=== PATIENT | male | born 1950 | race Caucasian/White ===

== ENCOUNTER → 2018-08-14 | Outpatient (CLI) | payer OTHER, MEDICARE | LOC: FIMAGING 09:57 | PROVIDERS: ATTEND Physician Assistant Surgical | DX: T84.226A Displacement of internal fixation device of vertebrae, initial encounter (principal); Z98.1 Arthrodesis status ==

== ENCOUNTER 2018-08-20 07:15 | Inpatient (IN) | payer OTHER, MEDICARE ==
[~2018-08-20 07:15] MED LIST: TRANEXAMIC ACID 1,000 MG in NS 100 ML IV ONE
[2018-08-20] MEDS ORDERED: fentaNYL 50 MCG in SYRINGE INTRATHECAL 1 SYR IT ONE (07:28)
[2018-08-20] MEDS ORDERED: ACETAMINOPHEN 500 MG TAB PO ONE (07:28)
[2018-08-20] MEDS ORDERED: morphINE PF 0.2 MG in SYRINGE INTRATHECAL 1 SYR IT ONE (07:28)
[2018-08-20] MEDS ORDERED: ceFAZolin 2 GM/DEXTROSE 100 ML IV ONE (07:28)
[2018-08-20] MEDS ORDERED: GABAPENTIN 300 MG CAP PO ONE (07:28)
[2018-08-20] MEDS ORDERED: LR 1,000 ML IV ONE (07:29)
[2018-08-20] MEDS ORDERED: LIDOCAINE 1% 2 ML INJ ID PRN (07:29)
[2018-08-20] MEDS ORDERED: BACITRACIN 50,000 UNITS/10 ML SYR IRR ONE ×2 (08:29→14:34)
[2018-08-20] MEDS ORDERED: BUPIVACAINE 0.25% 30 ML SDV ONE ×2 (08:29→16:15)
[2018-08-20] MEDS ORDERED: THROMBIN (BOVINE) 5,000 UNIT VIAL TP ONE (08:29)
[2018-08-20] MEDS ORDERED: CHLORHEXIDINE GLUC HIBICLENS 118 ML BTL TP ONE (08:29)
[2018-08-20] MEDS ORDERED: EPINEPHrine 1 MG/ML INJ ONE ×2 (08:29→16:15)
[2018-08-20 08:31] LABS: PLATELET COUNT 236 10^3/uL (150-400)
[2018-08-20] MEDS ORDERED: CITRATE DEXTROSE SOLN 500 ML BAG ONE ×3 (08:33→13:50)
[2018-08-20] MEDS ORDERED: fentaNYL 100 MCG/2 ML INJ IV ONE ×2 (08:45→09:45)
--- NOTE | 2018-08-20 09:51 | PDHPUP ---
History & Physical Update H&P update statement: This history and physical update is based on an assessment of the patient which was completed after admission or registration (within 24 hours), but prior to the surgery/procedure. H&P update: no change in patient's condition since H&P completed
[2018-08-20] MEDS ORDERED: THROMBIN (BOVINE) 20,000 UNIT VIAL TP ONE (10:03)
--- NOTE | 2018-08-20 10:03 | PDANEPAE ---
ANE Past Medical History - Cardiovascular History Hx Hypertension: Yes Hx Arrhythmias: Yes Hx Chest Pain: No Hx Coronary Artery / Peripheral Vascular Disease: No Hx CHF / Valvular Disease: No Hx Palpitations: No Cardiovascular History Comment: Ablation for afib, 05/2018, with cardioversion one month prior. 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 DM2 - Renal History Hx Renal Disorders: No - Liver History Hx Hepatic Disorders: No - Neurological & Psychiatric Hx Hx Neurological and Psychiatric Disorders: No - Cancer History Hx Cancer: Yes Cancer History Comment: THYROID 2011. SKIN CA MELANOMA NECK. SQUAMOUS CELL FACE - Congenital Disorder History Hx Congenital Disorders: No - GI History Hx Gastrointestinal Disorders: No Gastrointestinal History Comment: constipation r/t narcotic pain meds - Other Health History Other Health History: wears glasses - Chronic Pain History Chronic Pain: Yes (low back) - Surgical History Prior Surgeries: Lumbar spine I&D, 09/2016. 2001 LAMINECTOMY L3-5. 2001 FOOT SURG R. 2003 DISCECTOMY. 2005 FUSION L2 - S1. 2006 R KNEE REPLACEMENT. 2011 THYROIDECTOMY. TONSILLECTOMY. AUG 2015 Cervical Fusion ANE Review of Systems Review of Systems: - Exercise capacity METS (RN): 4 METS ANE Patient History - Allergies Allergies/Adverse Reactions: adhesive Allergy (Verified 08/19/18 12:46) rash (from steri-strips) latex Allergy (Verified 08/19/18 12:46) Rash povidone-iodine [From Betadine] Allergy (Verified 08/19/18 11:28) Rash soap [From Betadine] Allergy (Verified 08/19/18 11:28) Rash - Home Medications Home Medications: Cyanocobalamin [Vitamin B12 (*)] 1,000 mcg PO DAILY 08/13/15 [Last Taken ] Levothyroxine [Synthroid 200 mcg (*)] 300 mcg PO DAILY06 08/13/15 [Last Taken 04:00] Potassium Cl [Klor-Con 10 meq (RX)] 10 meq PO DAILY 08/13/15 [Last Taken ] Cholecalciferol Vit D3 [Vitamin D3 (*)] 1,000 units PO DAILY 09/19/16 [Last Taken 08/18/18] Herbals/Supplements -Info Only 1 ea PO DAILY 09/19/16 [Last Taken 08/18/18] Carvedilol [Coreg (*)] 12.5 mg PO BIDMEAL 09/28/16 [Last Taken 08/19/18] Apixaban [Eliquis] 5 mg PO BID 08/19/18 [Last Taken 08/16/18] C/E/Zn/Cu/OM3/DHA/EPA/LUT/ZEAX [Preservision Areds 2 Softgel] 1 each PO DAILY [Last Taken 08/18/18] Diazepam [Valium 5 MG (*)] 5 mg PO TID PRN 08/19/18 [Last Taken 08/19/18] Furosemide [Lasix 20 MG (*)] 20 mg PO DAILY 08/19/18 [Last Taken 08/18/18] Gabapentin [Neurontin 100 MG (*)] 100 - 200 mg PO HS 08/19/18 [Last Taken ] Insulin Aspart [novoLOG] 10 - 16 unit SC TIDMEAL 08/19/18 [Last Taken 08/19/18] Insulin Glargine [Lantus 100 UNITS/ML (*)] 55 units SC BID 08/19/18 [Last Taken 08/19/18 00:00] Losartan Potassium 100 mg PO DAILY 08/19/18 [Last Taken 08/19/18] Rosuvastatin Calcium [Crestor 10mg (RX)] 10 mg PO HS 08/19/18 [Last Taken ] levOFLOXACIN [levAQUIN (*)] 250 mg PO DAILY 08/19/18 [Last Taken 08/20/18 04:00] oxyCODONE/APAP 5/325 [Percocet 5/325 (*)] 1 tab PO DAILY PRN 08/19/18 [Last Taken 08/19/18] traMADol [Ultram 50 mg (*)] 50 mg PO BID 08/19/18 [Last Taken 08/20/18 04:00] - NPO status NPO Since - Liquids (Date): 08/19/18 NPO Since - Liquids (Time): 23:00 NPO Since - Solids (Date): 08/19/18 NPO Since - Solids (Time): 23:00 - Smoking Hx Smoking Status: Never smoked - Family Anes Hx Family Hx Anesthesia Complications: none ANE Labs/Vital Signs - Labs Result Diagrams: 08/20/18 08:20 08/20/18 08:20 - Vital Signs Blood Pressure: 173/105 Heart Rate: 80 Respiratory Rate: 16 O2 Sat (%): 97 Height: 175.26 cm Weight: 133.81 kg ANE Physical Exam - Airway Mallampati Score: Class 2 - ASA Status ASA Status: III ANE Anesthesia Plan Anesthesia Plan: general endotracheal anesthesia
[2018-08-20] MEDS ORDERED: MIDAZOLAM 2 MG/2 ML VIAL ONE (10:13)
[2018-08-20] MEDS ORDERED: fentaNYL 100 MCG/2 ML INJ ONE ×2 (10:14→11:54)
[2018-08-20] MEDS ORDERED: PROPOFOL/EMULSION 500 MG/50 ML BOTTLE IV ONE ×3 (10:14→14:17)
[2018-08-20] MEDS ORDERED: PROPOFOL 200 MG/20 ML VIAL ONE (10:14)
--- NOTE | 2018-08-20 10:20 | POSTOPPROG ---
Post Op Note Date of Operation: 08/20/18 Surgeon: Felipe Flores Sales Representative Sales Manager: Wing Giordano PAC Anesthesiologist: Nicole Yeung MD Anesthesia: GET(General Endotracheal) Pre-op Diagnosis: L1/2 pseudarthrosis, bilateral tabitha fracture Post-op Diagnosis: same Indication: Back pain Procedure: Left L1/2 DLIF and posterior hardware removal T9-S1 with reinstrumentation Findings: L1/2 pseudartrosis, loose screws Inf/Abcess present in the surg proc area at time of surgery?: No EBL: 500-1000 Complications: None Drains: Jermaine Castillo (to bulb suction) Specimen(s): none
--- NOTE | 2018-08-20 10:21 | SOAPPROG ---
SOAP Progress Note Assessment/Plan: POST OP CHECK Assessment: doing well sp left sided L1/2 DLIF and T9-S1 posterior hardware removal and reinstrumentation Plan: CPM in ICU SASCHA to bulb suction Hospitalist consulted. 08/20/18 10:20 08/20/18 16:56 Subjective: eyes open, states his back is "sore." Objective: Vital Signs Temp Pulse Resp BP Pulse Ox 36.8 C 80 16 173/105 H 97 08/20/18 08:33 08/20/18 10:03 08/20/18 10:03 08/20/18 10:03 08/20/18 10:03 Laboratory Results 08/20/18 08:20 08/20/18 08:20 Neuro: Awake, answering questions. ROSE, Sens +LT follows commands Vitals: HR: 76 BP: 152/109 O2: 100% ICD10 Worksheet Patient Problems: Problems Problem Status Onset Cervical stenosis of spinal canal Acute Fever Acute Lumbar stenosis Acute Obstructive sleep apnea (adult) (pediatric) Acute Post op infection Acute
[2018-08-20] MEDS ORDERED: ONDANSETRON 4 MG/2 ML VIAL ONE (14:02)
[2018-08-20] MEDS ORDERED: METOCLOPRAMIDE 10 MG/2 ML VIAL ONE (14:02)
[2018-08-20] MEDS ORDERED: ROCURONIUM 50 MG/5 ML VIAL ONE (14:02)
[2018-08-20] MEDS ORDERED: PHENYLEPHRINE HCL 100 MCG/ML SYR ONE (14:02)
[2018-08-20] MEDS ORDERED: ceFAZolin 1 GM VIAL ONE (14:02)
[2018-08-20] MEDS ORDERED: BISACODYL 10 MG SUPP PR PRN (16:39)
[2018-08-20] MEDS ORDERED: MAGNESIUM HYDROXIDE 30 ML UDCUP PO PRN (16:39)
[2018-08-20] MEDS ORDERED: ONDANSETRON DISINTEGRATING 4 MG TAB PO PRN (16:39)
[2018-08-20] MEDS ORDERED: LACTULOSE 20 GM/30 ML UDCUP PO PRN (16:39)
[2018-08-20] MEDS ORDERED: ONDANSETRON 4 MG/2 ML VIAL IVP PRN (16:39)
[2018-08-20] MEDS ORDERED: LR 500 ML IV PRN (16:52)
[2018-08-20] MEDS ORDERED: NALOXONE HCL 0.4 MG/ML INJ IVP PRN (16:52)
[2018-08-20] MEDS ORDERED: DIAZEPAM 5 MG/ML 1 ML SYR IVP PRN (16:52)
[2018-08-20] MEDS ORDERED: fentaNYL 100 MCG/2 ML INJ IVP PRN (16:52)
[2018-08-20] MEDS ORDERED: LABETALOL HCL 5 MG/ML 20 ML MDV IVP PRN (16:52)
[2018-08-20] MEDS ORDERED: MEPERIDINE 25 MG/0.5 ML AMP IVP PRN (16:52)
[2018-08-20] MEDS ORDERED: PROMETHAZINE HCL 25 MG/ML INJ IVP PRN (16:52)
--- NOTE | 2018-08-20 16:53 | POSTANESTH ---
Post Anesthetic Evaluation Cardiovascular Status: Similar to Pre-Op Cond Respiratory Status: Normal, Stable Level of Consciousness/Mental Status: Can Participate in Eval Pain Control: Adequate, Prn Tx Ordered Nausea/Vomiting Control: Adequate, Prn Tx Ordered Complications Possibly Related to Anesthesia: None Noted
[2018-08-20] MEDS: CARVEDILOL 25 MG TAB PO SCH (17:48)
[2018-08-20] MEDS: oxyCODONE IR 5 MG TAB PO PRN ×2 (17:58→22:07)
[2018-08-20] MEDS ORDERED: D50W 25 GM/50 ML SYR IVP PRN (19:16)
[2018-08-20] MEDS: SENNOSIDES/DOCUSATE SODIUM TAB PO SCH (19:38)
[2018-08-20] MEDS: ROSUVASTATIN CALCIUM 10 MG TAB PO SCH (19:38)
[2018-08-20] MEDS: FAMOTIDINE 20 MG TAB PO SCH (19:39)
[2018-08-20] MEDS: METHOCARBAMOL 750 MG TAB PO PRN (19:39)
[2018-08-20] MEDS: morphINE SR 15 MG TAB PO SCH (19:39)
[2018-08-20] MEDS: INSULIN GLARGINE 100 UNITS/ML UNIT SC SCH (19:50)
[2018-08-20] MEDS: ceFAZolin 2 GM/DEXTROSE 100 ML IV SCH (21:42)
[2018-08-20] MEDS: POLYETHYLENE GLYCOL 3350 17 GM PKT PO SCH (22:02)
[2018-08-20] MEDS: GABAPENTIN 300 MG CAP PO SCH (22:05)
[2018-08-20] MEDS: ACETAMINOPHEN 500 MG TAB PO SCH (22:06)
--- NOTE | 2018-08-20 23:03 | GOP ---
DATE OF OPERATION: 08/20/2018 SURGEON: Felipe Flores MD NEUROSURGEON: Felipe Flores MD. PSYCH SALES SPECIALIST: ELDER Otero. ANESTHESIA: General endotracheal. PREOPERATIVE DIAGNOSIS: L1-2 pseudoarthrosis and bilateral broken rods/failed hardware. Intractable pain. Obesity with a weight of 133 kilos. POSTOPERATIVE DIAGNOSIS: L1-2 pseudoarthrosis and bilateral broken rods/failed hardware. Intractabl e pain. Obesity with a weight of 133 kilos. PROCEDURE PERFORMED: L1-2 minimally invasive retroperitoneal approach for anterior lumbar diskectomy . Arthrodesis with placement of a 14 x 55 mm structural PEEK interbody spacer and bone morphogenic p rotein. Use of intraoperative fluoroscopy and computer volumetric stereotactic navigation with intra operative neurophysiologic testing. FINDINGS: ESTIMATED BLOOD LOSS: 25 cc. INDICATIONS: The patient is an obese 68-year-old man with a history of an extensive spinal reconstru ction and a fusion from T9 through S1 who recently broke his rods and was having intractable pain. H e presents now for removal and replacement of instrumentation and exploration of the spinal fusion an d a redo fusion. DESCRIPTION OF PROCEDURE: After informed consent was obtained, the patient was taken to the operatin g room and placed in the lateral position with the left side up. The O-arm neuronavigational system was brought in, and a docking pin was inserted through a small incision in the left posterior superio r iliac spine region. The navigational frame was attached to the pin and 3-D reconstructed images ob tained with the Stealth station. Using navigation, an ideal approach to the disk space was identifie d just below the ribs and serial dilators were inserted while stimulating. A complete diskectomy was then performed at the L1-2 level after re-verification of good position and the correct level using biplanar fluoroscopy. After complete diskectomy and preparation of the endplates and copious irrigat ion with antibiotic irrigation, a 14 x 55 mm structural PEEK interbody spacer packed with bone morpho genic protein was placed in the interspace under fluoroscopic image guidance. After re-verification of good positioning of the PEEK cage, copious irrigation. The wound was closed in a layered fashion using interrupted Vicryl sutures followed by Steri-Strips on the skin. COMPLICATIONS: None. DISPOSITION: The patient remained intubated and was repositioned for the posterior portion of the op eration. /[id number]/MODL
--- NOTE | 2018-08-20 23:13 | GOP ---
DATE OF OPERATION: 08/20/2018 SURGEON: Felipe Flores MD NEUROSURGEON: Felipe Flores MD. HEALTH AND SAFETY TECH: ELDER Otero. ANESTHESIA: General endotracheal. PREOPERATIVE DIAGNOSIS: L1-2 pseudoarthrosis and bilateral broken rods/failed hardware. Intractable pain. Obesity with a weight of 133 kg. POSTOPERATIVE DIAGNOSIS: L1-2 pseudoarthrosis and bilateral broken rods/failed hardware. Intractabl e pain. Obesity with a weight of 133 kg. PROCEDURE PERFORMED: Removal of posterior segmental (pedicle screw) fixation from T9 through S1 with reinsertion of spinal instrumentation and exploration of spinal fusion at all those levels. Re-inst rumentation from T9-S1 and redo posterior lateral fusion with local autograft and bone morphogenic pr otein and morselized allograft from T9 through S1. Use of intraoperative microscopy and fluoroscopy. FINDINGS: ESTIMATED BLOOD LOSS: 500 cc. INDICATIONS: The patient is an obese 68-year-old man with a history of an extensive spinal reconstru ction and a fusion from T9 through S1 who recently broke his rods and was having intractable pain. H e presents now for removal and replacement of instrumentation and exploration of the spinal fusion an d a redo fusion. DESCRIPTION OF PROCEDURE: After the anterior lateral portion of the procedure was completed, the pat ient was repositioned prone on the Jermaine table. The thoracolumbosacral areas were prepped and drap ed in sterile fashion, and after fluoroscopic localization of the correct levels, the subcutaneous an d intramuscular tissues were infiltrated with local anesthesia. A midline linear incision was then c reated from approximately T9 through S1. This was carried down the fascial layer, which was then inc ised using monopolar electrocautery and carried in a subperiosteal plane along the remaining spinous processes at the superior aspect of the surgery and all the way down to the very inferior aspect wher e the sacrum was identified. Careful dissection ensued into the middle portion of the operation/inci manish where there was no lamina over quite a bit of the thecal sac. There was an extensive amount of scar tissue, and this required meticulous dissection so as to not get a CSF leak. Eventually all of the former screws and rods were identified and all of the locking caps were removed along with the br oken rods bilaterally. Each individual pedicle screw was then tested for a bone screw interface stre ngth standpoint, and all of the screws in the lumbar spine on the right were removed and all of them on the left were removed because they were loose. In contrast, the screws on the left had solid purc hase. The T12 and L2 screws were also removed and all of the remaining scar tissue was carefully dis sected away. Following this, new screws were placed at T12 and L2 bilaterally, and after decorticati ng the remaining bone, the remaining bone morphogenic protein along with morselized allograft and kimberly e autograft from the posterior portion of the operation were placed in conjunction with this for a re do posterolateral fusion from T9 through S1. Bone morphogenic protein, morselized allograft, and loc al autograft were utilized for this. Following this, a drain was placed. The wound was copiously ir rigated with antibiotic irrigation, and the new rods were contoured and placed and secured from T9 th rough S1. The wound was then closed in a layered fashion using interrupted Vicryl sutures followed b y Steri-Strips on the skin. COMPLICATIONS: None. DISPOSITION: The patient is currently in the process of being repositioned for extubation. /[id number]/MODL
[2018-08-21] MEDS: METHOCARBAMOL 750 MG TAB PO PRN ×3 (01:24→17:49)
[2018-08-21 04:32] LABS: PLATELET COUNT 189 10^3/uL (150-400)
[2018-08-21] MEDS: LEVOTHYROXINE 200 MCG TAB PO SCH (06:10)
[2018-08-21] MEDS: ACETAMINOPHEN 500 MG TAB PO SCH ×3 (06:11→21:22)
[2018-08-21] MEDS: GABAPENTIN 300 MG CAP PO SCH ×3 (06:12→21:22)
[2018-08-21] MEDS: ceFAZolin 2 GM/DEXTROSE 100 ML IV SCH (06:12)
--- NOTE | 2018-08-21 06:15 | GCON ---
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 Patient was seen postoperatively in the intensive care unit where he appear s to be doing well postoperatively. He denies any headache. He denies any new numbness or weakness. He denies any chest pain or shortness of breath. He has a SASCHA drain in place that has been putting out red-tinged fluid. Nursing notes indicate that it has put out 215 cc. PAST MEDICAL HISTORY: 1. Insulin-dependent type 2 diabetes mellitus. 2. Hypertension. 3. Hyperlipidemia. 4. DVT in the setting of total knee arthroplasty in 2005. 5. Hypothyroidism due to thyroid cancer, status post thyroid resection. 6. Paroxysmal atrial fibrillation. 7. Multiple orthopedic surgeries. 8. Multiple spinal surgeries complicated by infections. HOME MEDICATIONS: Refer to [employer] for details. ALLERGIES: Latex, Betadine. SOCIAL HISTORY: The patient denies any alcohol, tobacco, or illicit drug use. FAMILY HISTORY: Reviewed and noncontributory. REVIEW OF SYSTEMS: Comprehensive 10-point review of systems was done and is negative, except for as mentioned in HPI. PHYSICAL EXAMINATION: VITAL SIGNS: Blood pressure 144/61, pulse of 90, respiratory rate 19, O2 satu ration 94% on room air. Temperature afebrile. GENERAL: No acute distress. HEAD: Normocephalic, a traumatic. EYES: PERRLA. Sclerae anicteric. MOUTH: Moist mucous membranes. NECK: Supple. No l ymphadenopathy. CARDIOVASCULAR: S1, S2. No murmurs, rubs, clicks, gallops. No JVD. No lower extr emity edema. PULMONARY: Lungs are clear. No wheezes, rales, or rhonchi. ABDOMEN: Soft, nontender , nondistended. No guarding or rebound tenderness. Normoactive bowel sounds. EXTREMITIES: No club cristina or cyanosis. NEURO: Cranial nerves 2-12 grossly intact. Patient moves all extremities. SKIN: Clear. SASCHA drain in place with thin, red-colored fluid. DIAGNOSTICS: WBC is 9.04, hemoglobin 16.7, hematocrit 48.1, platelets 236. Sodium 138, potassium 4. 7, chloride 103, CO2 24. BUN 17, creatinine 0.8. Glucose 178. Calcium 9.9. ASSESSMENT/PLAN: 1. This is a 68-year-old male, postoperative day zero L1-L2 direct lateral interbody fusion with T9- S1 hardware removal and instrumentation for L1-L2 nonunion. postoperatively, the patient appears to be stable in the intensive care unit. He has had more than 200 cc of output since returning to the nit, have asked the nursing staff to discuss this with the surgery team. 2. History of diabetes mellitus type 2. Will monitor blood sugars before meals and at bedtime, and treat with correctional insulin per protocol. 3. History of hypertension and paroxysmal atrial fibrillation. Plan on resuming the patient's home dose of carvedilol 12.5 mg p.o. b.i.d. as long as his blood pressure can tolerate it. Thank you for allowing me to participate in the care of the patient. The hospitalist service will co analia to follow along with you. /[id number]/MODL
[2018-08-21] MEDS: INSULIN LISPRO 100 UNIT/ML SC SCH ×3 (07:37→17:49)
--- NOTE | 2018-08-21 08:05 | NEUSURGPN ---
Date of Surgery: 08/20/18 Post Op Day: 1 Assessment/Plan: Assessment: 68 yr old M s/p left sided L1/2 DLIF and T9-S1 posterior hardware removal and reinstrumentation Plan: -PT/OT -Pain management, pain well controlled with current oral regimen -Ok to transfer to floor -SASCHA to suction, will leave in -Continue prophylactic Levaquin as ordered -Post op xrays pending -Stock Broker Supervisor consulted for brace -Dr Juan saw patient as well -Case management to begin eval for dispo later this week Call with any questions/concerns Subjective: Doing well, back pain controlled Objective: AxO x3 MAEX4 5/5 BLE Sensation intact to light touch Left flank incision CDI with dermabond Posterior incision-dressing CDI Neuro Check Frequency: per routine Catheter Insertion Date: 08/20/18 - Physician Discussed Patient with : Sandra Patient Seen by : Sandra Neurosurgery Physical Exam - Vitals, I&O, Labs I and O 08/20/18 08/21/18 08/22/18 05:59 05:59 05:59 Intake Total 945 Output Total 1045 Balance -100 Weight 133.81 kg 133.81 kg Intake: Oral (ml) 700 IV Intake (ml) 245 Output: Urine (ml) 540 Catheter 540 SASCHA Drain Output (ml) 505 #1 Left Back 505 Other: Intake Quantity Yes Sufficient Vital Signs Temp Pulse Resp BP Pulse Ox 36.9 C 90 15 104/68 95 08/20/18 23:00 08/21/18 07:00 08/21/18 07:00 08/21/18 07:00 08/21/18 07:00 Laboratory Results 08/21/18 03:40 08/21/18 03:40 ICD10 Worksheet Patient Problems: Problems Problem Status Onset Cervical stenosis of spinal canal Acute Fever Acute Lumbar stenosis Acute Obstructive sleep apnea (adult) (pediatric) Acute Post op infection Acute
--- NOTE | 2018-08-21 08:10 | PDMN ---
Medical Necessity Medical necessity: [facility] IP only surgery; cpt 32831 removal of posterior spinal instrumentation, [id number] Lumbar fusion (L1/L2 DLIF and posterior hardware removal)
[2018-08-21] MEDS ORDERED: LOSARTAN POTASSIUM 50 MG TAB PO SCH (09:00)
[2018-08-21] MEDS ORDERED: FUROSEMIDE 20 MG TAB PO SCH (09:00)
[2018-08-21] MEDS: POLYETHYLENE GLYCOL 3350 17 GM PKT PO SCH ×3 (09:02→21:22)
[2018-08-21] MEDS: ENOXAPARIN 40 MG/0.4 ML SYR SC SCH (09:02)
[2018-08-21] MEDS: oxyCODONE IR 5 MG TAB PO PRN ×2 (09:03→13:53)
[2018-08-21] MEDS: POTASSIUM CL 10 MEQ TAB PO SCH (09:03)
[2018-08-21] MEDS: CARVEDILOL 25 MG TAB PO SCH (09:03)
[2018-08-21] MEDS: CHOLECALCIFEROL VIT D3 1,000 UNITS TAB PO SCH (09:03)
[2018-08-21] MEDS: SENNOSIDES/DOCUSATE SODIUM TAB PO SCH ×2 (09:04→21:22)
[2018-08-21] MEDS: FAMOTIDINE 20 MG TAB PO SCH ×2 (09:04→21:22)
[2018-08-21] MEDS: morphINE SR 15 MG TAB PO SCH ×2 (09:04→21:22)
[2018-08-21] MEDS: PRESERVISION AREDS2 FORMULA EYE VIT 1 EACH PO SCH (09:04)
[2018-08-21] MEDS: INSULIN GLARGINE 100 UNITS/ML UNIT SC SCH ×2 (09:17→21:21)
[2018-08-21] MEDS: CYANO/VITAMIN B12 1000 MCG TAB PO SCH (09:18)
--- NOTE | 2018-08-21 19:46 | HOSPPROG ---
Hospitalist Progress Note Assessment/Plan: Assessment: 68 yo M p/w back pain and elective DLIF L1-L2 and hardware removal/ fusion T9-S1 Plan: # Back pain. POD#1 DLIF/T9-S1 removal fusion, NSGY remains primary -ongoing pain mgmt per NSGY -SASCHA drain output 90ml today, remain in place, repeat Hgb in AM # Hypotension. Acute, hx of chronic HTN, holding home Rx given marginal BPs post -op # Atrial fibrillation. Paroxysmal, requiring bblocker at baseline but currently in RVR on tele -start bblocker, but metoprolol instead of coreg given marginal BPs -ongoing tele monitoring -hold eliquis # DM2. Mild hyperglycemia, Cr 0.8, restart metformin tomorrow AM -cont ISS, will restart lantus tomorrow if PO intake at baseline # Morbid obesity. BMI 43, increased risk worsening morbidity/mortality w/ untreated SYDNEY -engage in PT/OT Hospital medicine will continue to consult in daily care. Subjective: has yet to have BM, pain well controlled Objective: Vital Signs Temp Pulse Resp BP Pulse Ox 36.8 C 106 H 18 102/64 94 08/21/18 18:06 08/21/18 18:06 08/21/18 18:06 08/21/18 18:06 08/21/18 18:06 Laboratory Results 08/21/18 03:40 08/21/18 03:40 08/20/18 08/21/18 08/22/18 05:59 05:59 05:59 Intake Total 945 1800 Output Total 1045 370 Balance -100 1430 - Physical Exam Constitutional: no apparent distress, not in pain, obese, No uncomfortable Cardiovascular: irregularly irregular, tachycardia, edema (trace bilat LE), No systolic murmur Respiratory: no respiratory distress, no rales or rhonchi, clear to auscultation Gastrointestinal: normoactive bowel sounds, no palpable masses, distension (mild ), No tenderness Neurologic: AAOx3, sensation intact bilaterally, facial droop Psychiatric: interacting appropriately, not anxious, not encephalopathic, thought process linear ICD10 Worksheet Patient Problems: Problems Problem Status Onset Cervical stenosis of spinal canal Acute Fever Acute Lumbar stenosis Acute Obstructive sleep apnea (adult) (pediatric) Acute Post op infection Acute
[2018-08-21] MEDS: METOPROLOL TARTRATE 25 MG TAB PO SCH (21:22)
[2018-08-21] MEDS: ROSUVASTATIN CALCIUM 10 MG TAB PO SCH (21:22)
[2018-08-22] MEDS: ACETAMINOPHEN 500 MG TAB PO SCH ×3 (05:58→21:16)
[2018-08-22] MEDS: GABAPENTIN 300 MG CAP PO SCH ×3 (05:58→21:16)
[2018-08-22] MEDS: LEVOTHYROXINE 200 MCG TAB PO SCH (05:58)
[2018-08-22] MEDS: CYANO/VITAMIN B12 1000 MCG TAB PO SCH (07:25)
[2018-08-22] MEDS: POTASSIUM CL 10 MEQ TAB PO SCH (07:25)
[2018-08-22] MEDS: CHOLECALCIFEROL VIT D3 1,000 UNITS TAB PO SCH (07:25)
[2018-08-22] MEDS: metFORMIN HCL 500 MG TAB PO SCH ×2 (07:25→19:11)
[2018-08-22] MEDS: PRESERVISION AREDS2 FORMULA EYE VIT 1 EACH PO SCH (07:25)
[2018-08-22] MEDS: SENNOSIDES/DOCUSATE SODIUM TAB PO SCH ×2 (07:26→21:16)
[2018-08-22] MEDS: morphINE SR 15 MG TAB PO SCH ×2 (07:26→21:15)
[2018-08-22] MEDS: FAMOTIDINE 20 MG TAB PO SCH ×2 (07:26→21:16)
[2018-08-22] MEDS: INSULIN GLARGINE 100 UNITS/ML UNIT SC SCH ×2 (07:26→21:15)
[2018-08-22] MEDS: POLYETHYLENE GLYCOL 3350 17 GM PKT PO SCH ×3 (07:26→21:15)
[2018-08-22] MEDS: METOPROLOL TARTRATE 25 MG TAB PO SCH ×2 (07:33→21:15)
--- NOTE | 2018-08-22 08:19 | NEUSURGPN ---
Date of Surgery: 08/20/18 Post Op Day: 2 Assessment/Plan: Assessment: 68 yr old M s/p left sided L1/2 DLIF and T9-S1 posterior hardware removal and reinstrumentation Plan: -PT/OT -Pain management, pain well controlled with current oral regimen -SASCHA to suction, will leave in. 30ml output -Continue prophylactic Levaquin as ordered -Post op xrays pending -Wear brace when out of bed -Dr Juan will see patient as well -Case management assess for rehab, likely can discharge tomorrow if continuing to do well Call with any questions/concerns Subjective: Doing well, pain well controlled Objective: AxO x3 MAEx4 5/5 BLE Sensation intact BLE Dressing CDI SASCHA patent Neuro Check Frequency: per routine Urinary Catheter in Place: No Catheter Insertion Date: 08/20/18 - Physician Discussed Patient with : Sandra Patient Seen by : Sandra Neurosurgery Physical Exam - Vitals, I&O, Labs I and O 08/21/18 08/22/18 08/23/18 05:59 05:59 05:59 Intake Total 945 2900 Output Total 1045 1465 270 Balance -100 1435 -270 Weight 133.81 kg Intake: Oral (ml) 700 2900 IV Intake (ml) 245 Output: Urine (ml) 540 1275 240 Catheter 540 Toilet 450 240 Urinal 825 SASCHA Drain Output (ml) 505 190 30 #1 Left Back 505 190 30 Other: Intake Quantity Yes Sufficient Number of Voids Toilet 2 Urinal 1 Number of Stools Toilet 1 Vital Signs Temp Pulse Resp BP Pulse Ox 37.1 C 82 14 103/57 L 94 08/22/18 07:51 08/22/18 07:51 08/22/18 07:51 08/22/18 07:51 08/22/18 07:51 Laboratory Results 08/22/18 04:33 08/22/18 04:33 ICD10 Worksheet Patient Problems: Problems Problem Status Onset Cervical stenosis of spinal canal Acute Fever Acute Lumbar stenosis Acute Obstructive sleep apnea (adult) (pediatric) Acute Post op infection Acute
[2018-08-22] MEDS: INSULIN LISPRO 100 UNIT/ML SC SCH ×3 (09:17→19:10)
--- NOTE | 2018-08-22 11:23 | ASMTCMCOM ---
CM Note CM Note Notes: [facility] met [facility] pt yesterday and will meet w pt who is at [facility] today. PT rec inpatient rehab vs. HHC. Pt hopes to go home with [facility]. Pt amenable to referral to [facility] in case he needs rehab. Pt is verbalizing she is hesitant for pt to go home from [facility]. Pt and to discuss further. [facility] to assess pt. D/c plan of care: [facility] Inpatient Rehab vs. SNF Date Signed: 08/22/2018 11:22 AM Electronically Signed By:MONROE Banda
[2018-08-22] MEDS: oxyCODONE IR 5 MG TAB PO PRN (13:00)
[2018-08-22] MEDS: ENOXAPARIN 40 MG/0.4 ML SYR SC SCH (13:01)
[2018-08-22] MEDS: METHOCARBAMOL 750 MG TAB PO PRN ×2 (15:07→21:15)
--- NOTE | 2018-08-22 19:04 | HOSPPROG ---
Hospitalist Progress Note Assessment/Plan: Assessment: 68 yo M p/w back pain and elective DLIF L1-L2 and hardware removal/ fusion T9-S1 Plan: # Back pain. POD#2 DLIF/T9-S1 removal fusion, NSGY remains primary -ongoing pain mgmt per NSGY -SASCHA drain output ongoing, remain in place, repeat Hgb stable 11.2 # Hypotension. Acute, hx of chronic HTN, reintroduced low dosage of metop # Atrial fibrillation. Paroxysmal, requiring bblocker at baseline but currently in RVR on tele -started bblocker, but metoprolol instead of coreg given marginal BPs -ongoing tele monitoring -holding eliquis # DM2. Mild hyperglycemia, Cr 0.8, restarted metformin and lantus -FBG 132, cont ISS # Morbid obesity. BMI 43, increased risk worsening morbidity/mortality w/ untreated SYDNEY -engage in PT/OT Hospital medicine will continue to consult in daily care. Subjective: patient needing asst w/ ADLs, pain controlled Objective: Vital Signs Temp Pulse Resp BP Pulse Ox 37.1 C 100 14 118/47 L 92 08/22/18 15:50 08/22/18 15:50 08/22/18 15:50 08/22/18 15:50 08/22/18 15:50 Laboratory Results 08/22/18 04:33 08/22/18 04:33 08/21/18 08/22/18 08/23/18 05:59 05:59 05:59 Intake Total 945 2900 200 Output Total 1045 1465 970 Balance -100 1435 -770 - Physical Exam Constitutional: no apparent distress, not in pain, obese, uncomfortable Cardiovascular: regular rate and rhythym, no murmur, rub, or gallop, No edema Respiratory: no respiratory distress, no rales or rhonchi, clear to auscultation Gastrointestinal: normoactive bowel sounds, soft, non-tender abdomen, no palpable masses Musculoskeletal: other (bloody SASCHA) Neurologic: AAOx3 Psychiatric: interacting appropriately, not anxious, not encephalopathic, thought process linear ICD10 Worksheet Patient Problems: Problems Problem Status Onset Cervical stenosis of spinal canal Acute Obstructive sleep apnea (adult) (pediatric) Acute Lumbar stenosis Acute Fever Acute Post op infection Acute
[2018-08-22] MEDS: ROSUVASTATIN CALCIUM 10 MG TAB PO SCH (21:16)
[2018-08-23] MEDS: METHOCARBAMOL 750 MG TAB PO PRN ×2 (04:58→13:56)
[2018-08-23] MEDS: LEVOTHYROXINE 200 MCG TAB PO SCH (04:58)
[2018-08-23] MEDS: ACETAMINOPHEN 500 MG TAB PO SCH ×3 (04:59→22:43)
[2018-08-23] MEDS: GABAPENTIN 300 MG CAP PO SCH ×3 (04:59→22:42)
--- NOTE | 2018-08-23 07:48 | NEUSURGPN ---
Assessment/Plan: Assessment: 68 yr old M s/p left sided L1/2 DLIF and T9-S1 posterior hardware removal and reinstrumentation Plan: -PT/OT -Pain management, pain well controlled with current oral regimen -SASCHA to suction, will leave in. 60ml output. Dr. Juan would like drain removed tomorrow. -Continue prophylactic Levaquin as ordered -Post op xrays show stable hardware -Wear brace when out of bed -Dressing changed, incision is cdi well approximated renuka in place -D/w Dr Juan -Case management assess for rehab, likely can discharge today if placement obtained Call with any questions/concerns Subjective: Pt resting in bed, some lower back pain and left psoas pain, overall doing well Objective: AAOx3 NAD VSS MAEx4 Motor 5/5 BLE Incision cdi renuka in place, dressing changed JPx1 scant dc in bulb Urinary Catheter in Place: No Catheter Insertion Date: 08/20/18 - Physician Discussed Patient with : Sandra Neurosurgery Physical Exam - Vitals, I&O, Labs I and O 08/22/18 08/23/18 08/24/18 05:59 05:59 05:59 Intake Total 2900 1200 Output Total 1465 1000 Balance 1435 200 Intake: Oral (ml) 2900 1200 Output: Urine (ml) 1275 940 Incontinence 400 Toilet 450 540 Urinal 825 SASCHA Drain Output (ml) 190 60 #1 Left Back 190 60 Other: Intake Quantity Yes Sufficient Number of Voids Incontinence 1 Toilet 2 1 Urinal 1 Number of Stools Incontinence 1 Toilet 1 1 Vital Signs Temp Pulse Resp BP Pulse Ox 36.9 C 89 16 152/81 H 95 08/23/18 04:00 08/23/18 04:00 08/23/18 04:00 08/23/18 04:00 08/23/18 04:00 Laboratory Results 08/22/18 04:33 08/22/18 04:33 ICD10 Worksheet Patient Problems: Problems Problem Status Onset Cervical stenosis of spinal canal Acute Fever Acute Lumbar stenosis Acute Obstructive sleep apnea (adult) (pediatric) Acute Post op infection Acute
[2018-08-23] MEDS: ENOXAPARIN 40 MG/0.4 ML SYR SC SCH (08:44)
[2018-08-23] MEDS: INSULIN LISPRO 100 UNIT/ML SC SCH ×3 (08:44→17:54)
[2018-08-23] MEDS: oxyCODONE IR 5 MG TAB PO PRN ×2 (08:45→22:44)
[2018-08-23] MEDS: morphINE SR 15 MG TAB PO SCH ×2 (08:45→20:30)
[2018-08-23] MEDS: PRESERVISION AREDS2 FORMULA EYE VIT 1 EACH PO SCH (08:45)
[2018-08-23] MEDS: CYANO/VITAMIN B12 1000 MCG TAB PO SCH (08:45)
[2018-08-23] MEDS: CHOLECALCIFEROL VIT D3 1,000 UNITS TAB PO SCH (08:46)
[2018-08-23] MEDS: SENNOSIDES/DOCUSATE SODIUM TAB PO SCH ×2 (08:46→19:45)
[2018-08-23] MEDS: POTASSIUM CL 10 MEQ TAB PO SCH (08:46)
[2018-08-23] MEDS: metFORMIN HCL 500 MG TAB PO SCH ×2 (08:46→17:54)
[2018-08-23] MEDS: FAMOTIDINE 20 MG TAB PO SCH ×2 (08:46→20:30)
[2018-08-23] MEDS: METOPROLOL TARTRATE 25 MG TAB PO SCH (08:46)
[2018-08-23] MEDS: POLYETHYLENE GLYCOL 3350 17 GM PKT PO SCH ×4 (08:47→19:45)
[2018-08-23] MEDS: INSULIN GLARGINE 100 UNITS/ML UNIT SC SCH ×2 (10:56→20:32)
--- NOTE | 2018-08-23 15:38 | ASMTCMCOM ---
CM Note CM Note Notes: Pt/ agree d/c to [facility] will be safest d/c, they can accept and will have bed tomorrow. ABIGAIL Arnold and neurosurgery LYNDA Saleh updated. Dina Mansfield [phone] is weekend contact at the rehab. Date Signed: 08/23/2018 03:38 PM Electronically Signed By:MONROE Banda
--- NOTE | 2018-08-23 19:30 | HOSPPROG ---
Hospitalist Progress Note Assessment/Plan: Assessment: 68 yo M p/w back pain and elective DLIF L1-L2 and hardware removal/ fusion T9-S1 Plan: # Back pain. POD#3 DLIF/T9-S1 removal fusion, NSGY remains primary -ongoing pain mgmt per NSGY -SASCHA drain output ongoing, remain in place -plan for SNF in AM # Hypotension. Acute, hx of chronic HTN + pain medication, slowly reintroducing home Rx # Atrial fibrillation. Paroxysmal, requiring bblocker at baseline -adjusted back to home coreg, but at lower dosage (6.25mg bid), can uptitrate if BP tolerates -ongoing tele monitoring -holding eliquis given recent surgery, recommend restarting when safe from a NSGY standpoint # DM2. Mild hyperglycemia, Cr 0.8, restarted metformin and lantus -FBG 116, cont ISS # Chronic HTN. Restarted home coreg and lasix (preferentially to reduce LE edema post-op)_, gauge effect -cont holding ARB, likely restart in outpt setting # Morbid obesity. BMI 43, increased risk worsening morbidity/mortality w/ untreated SYDNEY -engage in PT/OT Hospital medicine will continue to consult in daily care. Subjective: much less pain than prior to surgery, having BMs Objective: Vital Signs Temp Pulse Resp BP Pulse Ox 37.4 C 91 17 114/60 95 08/23/18 15:35 08/23/18 15:35 08/23/18 15:35 08/23/18 15:35 08/23/18 15:35 Laboratory Results 08/22/18 04:33 08/22/18 04:33 08/22/18 08/23/18 08/24/18 05:59 05:59 05:59 Intake Total 2900 1200 2200 Output Total 1465 1000 100 Balance 9111 850 7998 - Physical Exam Constitutional: no apparent distress, not in pain, obese, No uncomfortable Cardiovascular: regular rate and rhythym, no murmur, rub, or gallop, edema ( trace bilat LE), No irregularly irregular, No tachycardia Respiratory: no respiratory distress, no rales or rhonchi, clear to auscultation Gastrointestinal: normoactive bowel sounds, soft, non-tender abdomen, distension (mild) Neurologic: AAOx3, sensation intact bilaterally, No weakness Psychiatric: interacting appropriately, not anxious, not encephalopathic, thought process linear ICD10 Worksheet Patient Problems: Problems Problem Status Onset Cervical stenosis of spinal canal Acute Obstructive sleep apnea (adult) (pediatric) Acute Lumbar stenosis Acute Fever Acute Post op infection Acute
[2018-08-23] MEDS: ROSUVASTATIN CALCIUM 10 MG TAB PO SCH (20:30)
[2018-08-23] MEDS: diphenhydrAMINE 25 MG CAP PO PRN (23:30)
[2018-08-24] MEDS: METHOCARBAMOL 750 MG TAB PO PRN (01:19)
[2018-08-24] MEDS: GABAPENTIN 300 MG CAP PO SCH ×3 (05:43→22:53)
[2018-08-24] MEDS: ACETAMINOPHEN 500 MG TAB PO SCH ×3 (05:43→22:53)
[2018-08-24] MEDS: oxyCODONE IR 5 MG TAB PO PRN (05:44)
[2018-08-24] MEDS: LEVOTHYROXINE 200 MCG TAB PO SCH (05:44)
[2018-08-24] MEDS: diphenhydrAMINE 25 MG CAP PO PRN ×2 (06:19→20:34)
[2018-08-24] MEDS ORDERED: CARVEDILOL 6.25 MG TAB PO SCH (08:00)
--- NOTE | 2018-08-24 08:19 | HOSPPROG ---
Hospitalist Progress Note Assessment/Plan: 68M s/p T/L fusion Impression: 1. htn 2. DM2 3. obesity 4. SYDNEY 5. paroxysmal a-fib Recs: 1. incr coreg to 12.5 po bid today (home dose) 2. continue to hold losartan 3. cont metformin po 1000 bid 4. cont glargine 55U sc bid (home dose) 5. restart eliquis when safe post-op per NSG 6. he has f/u Dr Rankin, he believes Sep 04 dispo - ok for dc from IM perspective Subjective: no CP, SOB Objective: Vital Signs Temp Pulse Resp BP Pulse Ox 36.6 C 81 16 136/71 H 91 L 08/24/18 08:00 08/24/18 08:00 08/24/18 08:00 08/24/18 08:00 08/24/18 08:00 Laboratory Results 08/22/18 04:33 08/22/18 04:33 08/23/18 08/24/18 08/25/18 05:59 05:59 05:59 Intake Total 1200 3450 Output Total 1000 790 Balance 200 2660 chart reviewed XR's reviewed brief op note reviewed - Physical Exam Constitutional: obese Cardiovascular: regular rate and rhythym, no murmur, rub, or gallop, other ( premature beats) Respiratory: no respiratory distress, no rales or rhonchi, clear to auscultation Gastrointestinal: soft, non-tender abdomen, No guarding, No rebound, No distension ICD10 Worksheet Patient Problems: Problems Problem Status Onset Cervical stenosis of spinal canal Acute Obstructive sleep apnea (adult) (pediatric) Acute Lumbar stenosis Acute Fever Acute Post op infection Acute
[2018-08-24] MEDS: INSULIN LISPRO 100 UNIT/ML SC SCH ×3 (08:22→17:44)
[2018-08-24] MEDS: FAMOTIDINE 20 MG TAB PO SCH ×2 (09:32→20:34)
[2018-08-24] MEDS: CYANO/VITAMIN B12 1000 MCG TAB PO SCH (09:32)
[2018-08-24] MEDS: FUROSEMIDE 20 MG TAB PO SCH (09:33)
[2018-08-24] MEDS: PRESERVISION AREDS2 FORMULA EYE VIT 1 EACH PO SCH (09:33)
[2018-08-24] MEDS: metFORMIN HCL 500 MG TAB PO SCH ×2 (09:33→17:50)
[2018-08-24] MEDS: CHOLECALCIFEROL VIT D3 1,000 UNITS TAB PO SCH (09:35)
[2018-08-24] MEDS: POTASSIUM CL 10 MEQ TAB PO SCH (09:35)
[2018-08-24] MEDS: ENOXAPARIN 40 MG/0.4 ML SYR SC SCH (09:40)
[2018-08-24] MEDS: morphINE SR 15 MG TAB PO SCH ×2 (09:44→20:34)
[2018-08-24] MEDS: POLYETHYLENE GLYCOL 3350 17 GM PKT PO SCH ×3 (09:48→22:58)
[2018-08-24] MEDS: SENNOSIDES/DOCUSATE SODIUM TAB PO SCH ×2 (09:48→21:05)
--- NOTE | 2018-08-24 10:37 | NEUSURGPN ---
Date of Surgery: 08/20/18 Post Op Day: 4 Assessment/Plan: Assessment: 68 yr old M s/p left sided L1/2 DLIF and T9-S1 posterior hardware removal and reinstrumentation Plan: -PT/OT -Pain management, pain well controlled with current oral regimen -Remove SASCHA -Continue prophylactic Levaquin as ordered -Post op xrays show stable hardware -Wear brace when out of bed -Dressing changed, incision is cdi well approximated renuka in place -Patient will dc to rehab today Discussed patient with Dr Juan Call with any questions/concerns Subjective: Sitting in chair, doing well Objective: AxO x3 ROSE x4 5/5 BUE, BLE sensation intact to light touch BLE Dressing/incision CDI Neuro Check Frequency: per routine Urinary Catheter in Place: No Catheter Insertion Date: 08/20/18 - Physician Discussed Patient with : Sandra Neurosurgery Physical Exam - Vitals, I&O, Labs I and O 08/23/18 08/24/18 08/25/18 05:59 05:59 05:59 Intake Total 1200 3450 500 Output Total 1000 790 Balance 200 2660 500 Intake: Oral (ml) 1200 3450 500 Output: Urine (ml) 940 600 Incontinence 400 Toilet 540 300 Urinal 300 SASCHA Drain Output (ml) 60 190 #1 Left Back 60 190 Other: Intake Quantity Yes Sufficient Number of Voids Incontinence 1 2 Toilet 1 1 Urinal 1 Number of Stools Incontinence 1 Toilet 1 1 Vital Signs Temp Pulse Resp BP Pulse Ox 36.6 C 81 16 136/71 H 91 L 08/24/18 08:00 08/24/18 08:00 08/24/18 08:00 08/24/18 08:00 08/24/18 08:00 Laboratory Results 08/22/18 04:33 08/22/18 04:33 ICD10 Worksheet Patient Problems: Problems Problem Status Onset Cervical stenosis of spinal canal Acute Fever Acute Lumbar stenosis Acute Obstructive sleep apnea (adult) (pediatric) Acute Post op infection Acute
--- NOTE | 2018-08-24 10:50 | PDIAF ---
- Diagnosis Diagnosis: S/P L1-2 DLIF and T9-S1 hdwr removal and reinstrumentation for bkn rods Code Status: Full Code - Medication Management Discharge Medications: Medications to Continue on Transfer Cyanocobalamin [Vitamin B12 (*)] 1,000 mcg PO DAILY 08/13/15 [Last Taken ] Levothyroxine [Synthroid 200 mcg (*)] 300 mcg PO DAILY06 08/13/15 [Last Taken 04:00] Potassium Cl [Klor-Con 10 meq (RX)] 10 meq PO DAILY 08/13/15 [Last Taken ] metFORMIN HCL [Glucophage 500 mg (*)] 1,000 mg PO BIDMEAL #60 tab 09/08/15 [ Last Taken 08/16/18] Cholecalciferol Vit D3 [Vitamin D3 (*)] 1,000 units PO DAILY 09/19/16 [Last Taken 08/18/18] Herbals/Supplements -Info Only 1 ea PO DAILY 09/19/16 [Last Taken 08/18/18] Carvedilol [Coreg (*)] 12.5 mg PO BIDMEAL 09/28/16 [Last Taken 08/19/18] C/E/Zn/Cu/OM3/DHA/EPA/LUT/ZEAX [Preservision Areds 2 Softgel] 1 each PO DAILY [Last Taken 08/18/18] Furosemide [Lasix 20 MG (*)] 20 mg PO DAILY 08/19/18 [Last Taken 08/18/18] Insulin Aspart [novoLOG] 10 - 16 unit SC TIDMEAL 08/19/18 [Last Taken 08/19/18] Insulin Glargine [Lantus 100 UNITS/ML] 55 units SC BID 08/19/18 [Last Taken 00:00] Losartan Potassium 100 mg PO DAILY 08/19/18 [Last Taken 08/19/18] Rosuvastatin Calcium [Crestor] 10 mg PO HS 08/19/18 [Last Taken 08/19/18] levOFLOXACIN [levAQUIN (*)] 250 mg PO DAILY 08/19/18 [Last Taken 08/20/18 04:00] Acetaminophen [Tylenol ES 500 mg (*)] 1,000 mg PO Q8HRS tab 08/24/18 [Last Taken Unknown] Apixaban [Eliquis] 5 mg PO BID #0 08/24/18 [Last Taken 08/16/18] Diazepam [Valium 5 MG (*)] 5 mg PO TID PRN #60 tab 08/24/18 [Last Taken Unknown] Furosemide [Lasix 20 MG (*)] 20 mg PO DAILY tab 08/24/18 [Last Taken Unknown] Gabapentin [Neurontin 300 MG (*)] 600 mg PO Q8HRS cap 08/24/18 [Last Taken Unknown] Sennosides/Docusate Sodium [Senokot-S] 1 - 2 tab PO BID tab 08/24/18 [Last Taken Unknown] morphINE SR [Ms Contin/Oramorph 15 mg (*)] 15 mg PO BID #30 tab 08/24/18 [Last Taken Unknown] oxyCODONE IR [Oxycodone Ir (*)] 5 - 10 mg PO Q4HRS PRN #60 tab 08/24/18 [Last Taken Unknown] Discharge Medications: Refer to the Discharge Home Medication list for PRN reason. PICC Care - Routine: N/A - Orders Services needed: Registered Nurse, Certified Metal Forger'S Assistant, Physical Therapy, Occupational Therapy Diet Recommendation: no restrictions on diet Diet Texture: Regular Texture Diet Date to Remove Sutures/Bebe: 09/02/18 Activity/Weight Bearing Restrictions: No bending or twisting. Do not lift greatet than 10 pounds. Wear brace when out of bed Additional Instructions: NO bending or twisting Do not lift greater than 10 pounds Wear brace when out of bed Ok to shower - Follow Up Care Current Providers and Referrals: CARLOS LU [Other] Felipe Flores MD [Medical Doctor] - follow up in 2 weeks
[2018-08-24] MEDS: INSULIN GLARGINE 100 UNITS/ML UNIT SC SCH ×2 (11:26→20:35)
--- NOTE | 2018-08-24 11:30 | ASMTLACE ---
LACE Length of stay for Answers: 4-6 days current admission Acuity / Level of Answers: Yes Care: Did the patient have an inpatient admission? Comorbidities - select Answers: Diabetes (uncontrolled or all that apply controlled) Opioid dependence / Chronic pain Other Notes: HTN, lumbar psuedoarthritix # of Emergency department Answers: 0 visits in the last 6 months Score: 13 Date Signed: 08/24/2018 11:29 AM Electronically Signed By:Pamela Dillon
--- NOTE | 2018-08-24 14:51 | ASMTCMCOM ---
CM Note CM Note Notes: Pt was to discharge to [facility], but they called today to say they would not have a bed available until Sunday or Sunday. Family and pt were not willing to pursue inpatient rehab outside of their home area. PT recommending SNF v Inpatient Rehab as pt is still having difficulty getting out of bed independently and has an injured leg and is unable to help him. Referrals were sent to [facility] in [facility] which and pt prefer but they are not able to get insurance authorization until Sunday. Discharge delayed until Sunday. CM to follow. D/C Plan: [facility] v [facility]F in [place]. Date Signed: 08/24/2018 02:50 PM Electronically Signed By:Pamela Dillon
--- NOTE | 2018-08-24 14:57 | ASMTCMCOM ---
CM Note CM Note Notes: Addendum: If pt goes to [facility] in [facility], pt will need MD in [facility] to follow the patient. Their DON will also need to approve pt due to his weight. Date Signed: 08/24/2018 02:57 PM Electronically Signed By:Pamela Dillon
[2018-08-24] MEDS: CARVEDILOL 6.25 MG TAB PO SCH (17:52)
[2018-08-24] MEDS: ROSUVASTATIN CALCIUM 10 MG TAB PO SCH (20:34)
[2018-08-25] MEDS: oxyCODONE IR 5 MG TAB PO PRN ×2 (00:07→05:06)
[2018-08-25] MEDS: LEVOTHYROXINE 200 MCG TAB PO SCH (05:04)
[2018-08-25] MEDS: ACETAMINOPHEN 500 MG TAB PO SCH (05:06)
[2018-08-25] MEDS: GABAPENTIN 300 MG CAP PO SCH (05:07)
[2018-08-25 07:33] VITALS: BP 130/62
--- NOTE | 2018-08-25 07:38 | HOSPPROG ---
Hospitalist Progress Note Assessment/Plan: 68M s/p T/L fusion. Impression: 1. htn 2. DM2 3. obesity 4. SYDNEY 5. paroxysmal a-fib, [id number] giving a 3.2% annual stroke risk Recs: 1. cont coreg 12.5 po bid (home dose) 2. restart losartan 25mg PO daily (home dose 100mg PO daily) 3. cont metformin po 1000 bid 4. cont glargine 55U sc bid (home dose) 5. check BMP today 6. restart eliquis when safe post-op per NSG 7. he has f/u Dr Rankin, he believes Sep 04 dispo - ok for dc from IM perspective Subjective: not discharged yesterday d/t bed availability; no complaints Objective: Vital Signs Temp Pulse Resp BP Pulse Ox 36.8 C 73 16 130/62 H 93 08/25/18 07:27 08/25/18 07:27 08/25/18 07:27 08/25/18 07:27 08/25/18 07:27 Laboratory Results 08/22/18 04:33 08/22/18 04:33 08/24/18 08/25/18 08/26/18 05:59 05:59 05:59 Intake Total 3450 2500 Output Total 790 75 Balance 2660 2425 - Physical Exam Constitutional: no apparent distress, obese Cardiovascular: regular rate and rhythym, no murmur, rub, or gallop, other ( occasional premature beats) Respiratory: no respiratory distress, no rales or rhonchi Gastrointestinal: soft, non-tender abdomen, no palpable masses, No guarding, No rebound, No distension ICD10 Worksheet Patient Problems: Problems Problem Status Onset Cervical stenosis of spinal canal Acute Fever Acute Lumbar stenosis Acute Obstructive sleep apnea (adult) (pediatric) Acute Post op infection Acute
[2018-08-25] MEDS: INSULIN LISPRO 100 UNIT/ML SC SCH (08:05)
[2018-08-25] MEDS: CARVEDILOL 6.25 MG TAB PO SCH (08:20)
[2018-08-25] MEDS: CHOLECALCIFEROL VIT D3 1,000 UNITS TAB PO SCH (08:21)
[2018-08-25] MEDS: CYANO/VITAMIN B12 1000 MCG TAB PO SCH (08:21)
[2018-08-25] MEDS: INSULIN GLARGINE 100 UNITS/ML UNIT SC SCH (08:21)
[2018-08-25] MEDS: PRESERVISION AREDS2 FORMULA EYE VIT 1 EACH PO SCH (08:21)
[2018-08-25] MEDS: FUROSEMIDE 20 MG TAB PO SCH (08:21)
[2018-08-25] MEDS: FAMOTIDINE 20 MG TAB PO SCH (08:21)
[2018-08-25] MEDS: metFORMIN HCL 500 MG TAB PO SCH (08:21)
[2018-08-25] MEDS: morphINE SR 15 MG TAB PO SCH (08:22)
[2018-08-25] MEDS: POLYETHYLENE GLYCOL 3350 17 GM PKT PO SCH (08:22)
[2018-08-25] MEDS: POTASSIUM CL 10 MEQ TAB PO SCH (08:22)
[2018-08-25] MEDS: SENNOSIDES/DOCUSATE SODIUM TAB PO SCH (08:23)
[2018-08-25] MEDS: ENOXAPARIN 40 MG/0.4 ML SYR SC SCH (08:28)
[2018-08-25] MEDS ORDERED: LOSARTAN POTASSIUM 25 MG TAB PO SCH (09:00)
--- NOTE | 2018-08-25 09:45 | PDIAF ---
- Diagnosis Diagnosis: S/P L1-2 DLIF and T9-S1 hdwr removal and reinstrumentation for bkn rods Code Status: Full Code - Medication Management Discharge Medications: Medications to Continue on Transfer Cyanocobalamin [Vitamin B12 (*)] 1,000 mcg PO DAILY 08/13/15 [Last Taken ] Levothyroxine [Synthroid 200 mcg (*)] 300 mcg PO DAILY06 08/13/15 [Last Taken 04:00] Potassium Cl [Klor-Con 10 meq (RX)] 10 meq PO DAILY 08/13/15 [Last Taken ] metFORMIN HCL [Glucophage 500 mg (*)] 1,000 mg PO BIDMEAL #60 tab 09/08/15 [ Last Taken 08/16/18] Cholecalciferol Vit D3 [Vitamin D3 (*)] 1,000 units PO DAILY 09/19/16 [Last Taken 08/18/18] Herbals/Supplements -Info Only 1 ea PO DAILY 09/19/16 [Last Taken 08/18/18] Carvedilol [Coreg (*)] 12.5 mg PO BIDMEAL 09/28/16 [Last Taken 08/19/18] C/E/Zn/Cu/OM3/DHA/EPA/LUT/ZEAX [Preservision Areds 2 Softgel] 1 each PO DAILY [Last Taken 08/18/18] Furosemide [Lasix 20 MG (*)] 20 mg PO DAILY 08/19/18 [Last Taken 08/18/18] Insulin Aspart [novoLOG] 10 - 16 unit SC TIDMEAL 08/19/18 [Last Taken 08/19/18] Insulin Glargine [Lantus 100 UNITS/ML] 55 units SC BID 08/19/18 [Last Taken 00:00] Losartan Potassium 100 mg PO DAILY 08/19/18 [Last Taken 08/19/18] Rosuvastatin Calcium [Crestor] 10 mg PO HS 08/19/18 [Last Taken 08/19/18] levOFLOXACIN [levAQUIN (*)] 250 mg PO DAILY 08/19/18 [Last Taken 08/20/18 04:00] Acetaminophen [Tylenol ES 500 mg (*)] 1,000 mg PO Q8HRS tab 08/24/18 [Last Taken Unknown] Apixaban [Eliquis] 5 mg PO BID #0 08/24/18 [Last Taken 08/16/18] Diazepam [Valium 5 MG (*)] 5 mg PO TID PRN #60 tab 08/24/18 [Last Taken Unknown] Furosemide [Lasix 20 MG (*)] 20 mg PO DAILY tab 08/24/18 [Last Taken Unknown] Gabapentin [Neurontin 300 MG (*)] 600 mg PO Q8HRS cap 08/24/18 [Last Taken Unknown] Sennosides/Docusate Sodium [Senokot-S] 1 - 2 tab PO BID tab 08/24/18 [Last Taken Unknown] morphINE SR [Ms Contin/Oramorph 15 mg (*)] 15 mg PO BID #30 tab 08/24/18 [Last Taken Unknown] oxyCODONE IR [Oxycodone Ir (*)] 5 - 10 mg PO Q4HRS PRN #60 tab 08/24/18 [Last Taken Unknown] Discharge Medications: Refer to the Discharge Home Medication list for PRN reason. PICC Care - Routine: N/A - Orders Services needed: Home Care, Certified Shadowgraph Operator, Physical Therapy, Occupational Therapy Home Care Face to Face: I certify that this patient was under my care and that I had the required [id number] encounter meeting the encounter requirements on the discharge day. My findings support the fact that the patient is homebound as defined in Home Care Face to Face Continued: CMS Chapter 7 Medicare Benefits Manual 30.1.1 , The condition of the patient is such that there exists a normal inability to leave home and consequently, leaving home would require a considerable and taxing effort. Diet Recommendation: no restrictions on diet Diet Texture: Regular Texture Diet Date to Remove Sutures/Bebe: 09/02/18 Activity/Weight Bearing Restrictions: No bending or twisting. Do not lift greatet than 10 pounds. Wear brace when out of bed Additional Instructions: NO bending or twisting Do not lift greater than 10 pounds Wear brace when out of bed Ok to shower - Follow Up Care Current Providers and Referrals: CARLOS LU [Other] Felipe Flores MD [Medical Doctor] - follow up in 2 weeks
--- NOTE | 2018-08-25 09:45 | NEUSURGPN ---
Date of Surgery: 08/20/18 Post Op Day: 5 Assessment/Plan: Assessment: 68 yr old M s/p left sided L1/2 DLIF and T9-S1 posterior hardware removal and reinstrumentation Plan: -PT/OT -Pain management, pain well controlled with current oral regimen -Continue prophylactic Levaquin as ordered -Post op xrays show stable hardware -Wear brace when out of bed -Dressing changed, incision is cdi well approximated renuka in place -Ok to dc home today with home health pending therapies recommendations Discussed patient with Dr Juan Call with any questions/concerns Subjective: Sitting in chair doing well Objective: AxO x3 ROSE x4 5/5 BUE, BLE sensation intact to light touch BLE Dressing/incision CDI Neuro Check Frequency: per routine Urinary Catheter in Place: No Catheter Insertion Date: 08/20/18 - Physician Discussed Patient with : Sandra Neurosurgery Physical Exam - Vitals, I&O, Labs I and O 08/24/18 08/25/18 08/26/18 05:59 05:59 05:59 Intake Total 3450 2500 Output Total 790 75 Balance 2660 2425 Intake: Oral (ml) 3450 2500 Output: Urine (ml) 600 Toilet 300 Urinal 300 SASCHA Drain Output (ml) 190 75 #1 Left Back 190 75 Other: Intake Quantity Yes Sufficient Number of Voids Incontinence 2 Toilet 1 2 1 Urinal 1 Number of Stools Toilet 1 1 Vital Signs Temp Pulse Resp BP Pulse Ox 36.8 C 98 16 130/62 H 93 08/25/18 07:27 08/25/18 08:20 08/25/18 07:27 08/25/18 08:22 08/25/18 07:27 Laboratory Results 08/22/18 04:33 08/25/18 08:31 ICD10 Worksheet Patient Problems: Problems Problem Status Onset Cervical stenosis of spinal canal Acute Fever Acute Lumbar stenosis Acute Obstructive sleep apnea (adult) (pediatric) Acute Post op infection Acute
--- NOTE | 2018-08-25 10:51 | ASMTDCNOTE ---
Case Management Discharge Discharge Order Complete? Answers: Yes Patient to Obtain Answers: via Family Medications Transportation Arranged Answers: Family/Friends Transport will Pick (Date 08/24/2018 12:00 PM & Time) Faxed Final Orders Answers: Yes Notes: [facility] Family Notified Answers: Yes Notes: to transport Discharge Comments Notes: PT has cleared patient to return home with his and [facility]. Date Signed: 08/25/2018 10:51 AM Electronically Signed By:Lindsey Elkins LCSW
--- NOTE | 2018-08-25 11:09 | ASDISCHSUM ---
Discharge Information Plan Status:Home with Home Health Medically Cleared to Leave:08/24/2018 Discharge Date:08/24/2018 CM D/C Disposition:Home Health Service [facility] D/C Disposition:[id number] Projected Discharge Date:08/24/2018 12:00 PM Transportation at D/C:Family Discharge Delay Reason: Follow-Up Date:08/24/2018 12:00 PM Discharge Slot:1 - 8:01 am - 12:00 noon Final Diagnosis:L1/2 Pseudoarthrosis Placement Information [facility]erral [facility] Referral ID:[id number] Provider Name: Address 1: Phone Number: Address 2: Fax Number: City: Selection Factors: State: Referral Type:*Care Home/SNF Referral ID:[id number] Provider Name: Address 1: Phone Number: Address 2: Fax Number: City: Selection Factors: State: Referral Type:*Home Health Care Services Referral ID:[id number] Provider Name:[facility] [place] ([facility]) Address 1:[address] Address 2: City:[place] Selection Factors: State:[place] Patient Contact Information Contact Name:JEREMIAH Relationship: Address:[address] City:[facility] Phone: [facility]/Zip Code:[place] [address] Email: Financial Information Financial Class:Medicare Primary Plan Desc:MEDICARE INPATIENT Primary Plan Number:[id number] Secondary Plan Desc:[employer] SUPPLEMENT Secondary Plan Number:[id number] Assessment Information LACE LACE Length of stay for Answers: 4-6 days current admission Acuity / Level of Answers: Yes Care: Did the patient have an inpatient admission? Comorbidities - select Answers: Diabetes (uncontrolled or all that apply controlled) Opioid dependence / Chronic pain Other Notes: HTN, lumbar psuedoarthritix # of Emergency department Answers: 0 visits in the last 6 months Score: 13 Date Signed: 08/24/2018 11:29 AM Electronically Signed By:Pamela Dillon [facility] CM Progress Note CM Note CM Note Notes: Pt pre-arranged with [facility], Halie with [facility] met with pt yesterday and will meet w pt who is at [facility] today. PT rec inpatient rehab vs. [facility]. Pt hopes to go home with [facility]. Pt amenable to referral to [facility] in case he needs rehab. Pt is verbalizing she is hesitant for pt to go home from [facility]. Pt and to discuss further. [facility] to assess pt. D/c plan of care: [facility] Inpatient Rehab vs. SNF Date Signed: 08/22/2018 11:22 AM Electronically Signed By:MONROE Banda [facility] CM Progress Note CM Note CM Note Notes: Pt/ agree d/c to [facility] will be safest d/c, they can accept and will have bed tomorrow. ABIGAIL Arnold and neurosurgery LYNDA Saleh updated. Dina Mansfield [phone] is weekend contact at the rehab. Date Signed: 08/23/2018 03:38 PM Electronically Signed By:MONROE Banda Case Management Discharge Plan Note Case Management Discharge Discharge Order Complete? Answers: Yes Patient to Obtain Answers: via Family Medications Transportation Arranged Answers: Family/Friends Transport will Pick (Date 08/24/2018 12:00 PM & Time) Faxed Final Orders Answers: Yes Notes: [facility] Family Notified Answers: Yes Notes: to transport Discharge Comments Notes: PT has cleared patient to return home with his and [facility]. Date Signed: 08/25/2018 10:51 AM Electronically Signed By:Lindsey Elkins LCSW [facility] CM Progress Note CM Note CM Note Notes: Pt was to discharge to [facility], but they called today to say they would not have a bed available until Sunday or Sunday. Family and pt were not willing to pursue inpatient rehab outside of their home area. PT recommending SNF v Inpatient Rehab as pt is still having difficulty getting out of bed independently and has an injured leg and is unable to help him. Referrals were sent to [facility] in [facility] which and pt prefer but they are not able to get insurance authorization until Sunday. Discharge delayed until Sunday. CM to follow. D/C Plan: [facility] v [facility] in [place]. Date Signed: 08/24/2018 02:50 PM Electronically Signed By:Pamela Dillon [facility] CM Progress Note CM Note CM Note Notes: Addendum: If pt goes to [facility] in [place], pt will need MD in [facility] to follow the patient. Their DON will also need to approve pt due to his weight. Date Signed: 08/24/2018 02:57 PM Electronically Signed By:Pamela Dillon Intervention Information
== END 2018-08-25 13:06 | disposition home health service (06) | DRG 454 ==
LOC: F3N 07:15 → F2N 17:36 → F3N 08-21 17:55
PROVIDERS: ADMIT Neurological Surgery; ATTEND Neurological Surgery
DX: M96.0 Pseudarthrosis after fusion or arthrodesis (principal); T84.216A Breakdown (mechanical) of internal fixation device of vertebrae, initial encounter; I48.0 Paroxysmal atrial fibrillation; Z79.01 Long term (current) use of anticoagulants; I10 Essential (primary) hypertension; E66.01 Morbid (severe) obesity due to excess calories; Z68.43 Body mass index [BMI] 50.0-59.9, adult; G47.33 Obstructive sleep apnea (adult) (pediatric); E11.9 Type 2 diabetes mellitus without complications; Z79.4 Long term (current) use of insulin; Z79.84 Long term (current) use of oral hypoglycemic drugs; E78.5 Hyperlipidemia, unspecified; E89.0 Postprocedural hypothyroidism; Z85.850 Personal history of malignant neoplasm of thyroid; Z85.820 Personal history of malignant melanoma of skin; Z96.651 Presence of right artificial knee joint
CPT/HCPCS: 97116-GP; 97161-GP; 97165-GO; 97530-GP; 97535-GO; C1713; C1762; C1763; G8978-GP-CI; G8978-GP-CL; G8979-GP-CI; G8979-GP-CJ; G8980-GP-CI; G8987-GO-CI; G8988-GO-CL; J0171; J0690; J1650; J1815; J2250; J2270; J2274; J2370; J2405; J2704; J2765; J3010